=== PATIENT | female | born 1970 | race Hispanic/Latino ===

== ENCOUNTER 2018-03-06 12:30 | Emergency (ER) | payer OTHER ==
[2018-03-06 12:37] VITALS: BMI 25.1
[2018-03-06 12:40] VITALS: RESP 18; O2SAT 98
[2018-03-06] MEDS ORDERED: Sodium Chloride 0.9% 1,000 ML IV STA (13:40)
[2018-03-06] MEDS ORDERED: Mineral Oil Enema 135 ml RC ONE (13:41)
[2018-03-06] MEDS ORDERED: Magnesium Citrate Oral SOL (300 ml) PO ONE (13:41)
--- NOTE | 2018-03-06 13:45 | ED PDOC ---
Arrival/HPI - General Chief Complaint: GI Problem Time Seen by Provider: 03/06/18 13:13 Historian: Patient - History of Present Illness Narrative History of Present Illness (Text): 03/06/18 13:42 A 47 year old female, whose past medical history includes acute gastritis with stomach ulcers and section, presents to the emergency department complaining of having no bowel movement with occasional flatus for the past 11 days. Patient reports having taken Laxatives, as well as suppositories, and had some loose bowel movement, however still has had no improvement. Patient mentions also having 2 episodes of nausea/vomiting a few days ago, and 3 days of no appetite and decreased hydration. As a result, patient felt weak and fatigue; along with waxing/waning abdominal pain lasting for several minutes. Patient became concerned and decided to come to the ER for evaluation. Patient denies any fever, chills, chest pain, shortness of breath, palpitation, urinary output changes, or any other complaints at this time. pt denied fall/trauma; Also, patient denies any recent travel or sick contacts. Patient also mentions she has a GI doctor, however has not seen the physician for many years. pt's without other complaints pt is here for further eval PMD: Dr. Peterson The Time/Duration: > week (11 days) Symptom Onset: Gradual Symptom Course: Unchanged Severity Level: Severe Activities at Onset: Rest Context: Home Past Medical History - Provider Review Nursing Documentation Reviewed: Yes - Travel History Have you recently traveled outside [place] w/in the past 3 mons?: No - Past History Past History: No Previous - Infectious Disease Hx of Infectious Diseases: None - Reproductive Menopause: No Currently : Unknown - Cardiac Hx Cardiac Disorders: No Hx Hypertension: No - Pulmonary Hx Tuberculosis: No - Neurological HX Cerebrovascular Accident: No Hx Seizures: No - HEENT Hx HEENT Disorder: No Hx Blind: No Hx Cataracts: No Hx Deafness: No Hx Difficulty Chewing: No Hx Epistaxis: No Hx Glaucoma: No Hx Macular Degeneration: No - Renal Hx Renal Disorder: No Hx Dialysis: No Hx Kidney Stones: No Hx Neurogenic Bladder: No Hx Pyelonephritis: No Hx Renal Cancer: No Hx Renal Failure: No - Endocrine/Metabolic Hx Endocrine Disorders: No Hx Adrenal Cancer: No Hx Diabetes Insipidus: No Hx Diabetes Mellitus Type 1: No Hx Diabetes Mellitus Type 2: No Hx Hyperthyroidism: No Hx Hypothyroidism: No Hx Systemic Lupus Erythematosus: No - Hematological/Oncological Hx Cancer: No - Integumentary Hx Dermatological Disorder: No Hx Basal Cell Carcinoma: No Hx Eczema: No Hx Melanoma: No Hx Psoriasis: No Hx Squamous Cell Carcinoma: No - Musculoskeletal/Rheumatological Hx Musculoskeletal Disorders: No Hx Arthritis: No Hx Back Pain: No Hx Degenerative Joint Disease: No Hx Falls: No Hx Fractures: No Hx Gout: No Hx Herniated Disk: No Hx Myasthenia Gravis: No Hx Osteoarthritis: No Hx Osteomyelitis: No Hx Osteoporosis: No Hx Rhabdomyolysis: No Hx Spinal Stenosis: Yes Hx Unsteady Gait: No Other/Comment: Cervical Spinal fusion 2005 - Gastrointestinal Hx Gastrointestinal Disorders: No Hx Colostomy: No Hx Crohn's Disease: No Hx Diverticulitis: No Hx Gall Bladder Disease: No Hx Gastroesophageal Reflux: No Hx Ileostomy: No Hx Liver Failure: No Hx Pancreatitis: No HX Swallowing Problems: No Other/Comment: gastritis - Genitourinary/Gynecological Hx Sexually Transmitted Diseases: No - Psychiatric Hx Psychophysiologic Disorder: No Hx Anxiety: Yes Hx Bipolar Disorder: No Hx Depression: Yes Hx Emotional Abuse: No Hx Hallucinations: No Hx Panic Disorder: No Hx Post Traumatic Stress Disorder: No Hx Psychosis: No Hx Physical Abuse: No Hx Schizophrenia: No Hx Sexual Abuse: No Hx Substance Use: No Other/Comment: ADHD - Surgical History Hx Amputation: No Hx Appendectomy: No Hx Cardiac Catheterization: No Hx Cholecystectomy: No Hx Coronary Stent: No Hx Gastric Bypass Surgery: No Hx Hysterectomy: No Hx Joint Replacement: No Hx Kidney Transplant: No Hx Liver Transplant: No Hx Mastectomy: No Hx Musculoskeletal Surgery: No Hx Open Heart Surgery: No Hx Orthopedic Surgery: No Hx Splenectomy: No Hx Valve Replacement: No Other/Comment: Cervical spinal fusion. - Anesthesia Hx Anesthesia: Yes Hx Anesthesia Reactions: No Hx Malignant Hyperthermia: No - Suicidal Assessment Feels Threatened In Home Enviroment: No Family/Social History - Physician Review Nursing Documentation Reviewed: Yes Family/Social History: No Known Family HX Smoking Status: Heavy Smoker > 10 Cigarettes Daily Hx Alcohol Use: Yes Frequency of alcohol use: Socially Hx Substance Use: No Hx Substance Use Treatment: No Allergies/Home Meds Allergies/Adverse Reactions: Allergies No Known Allergies Allergy (Verified 06/10/14 14:36) Home Medications: Home Meds Medication Instructions Recorded Confirmed ALPRAZolam [Xanax] 1 tab PO BID PRN 03/06/18 03/06/18 Vortioxetine Hydrobromide 1 tab PO DAILY 03/06/18 03/06/18 [Trintellix] Review of Systems - Physician Review All systems were reviewed & negative as marked: Yes - Review of Systems Constitutional: Fatigue, Other (weakness). absent: Fevers, Night Sweats Eyes: Normal ENT: Normal Respiratory: absent: SOB Cardiovascular: absent: Chest Pain, Palpitations Gastrointestinal: Abdominal Pain (waxing/waning pain with severity of 10/10 lasting several minutes), Nausea, Vomiting (occured few days ago), Other ( occasional flatus). absent: Appetite Changes (no appetite and decreased hydration) Genitourinary Female: absent: Urine Output Changes, Other (patient experiencing no bowel movment) Musculoskeletal: Normal Skin: Normal Neurological: Normal Endocrine: Normal Hemo/Lymphatic: Normal Psychiatric: Normal Physical Exam - Physical Exam Narrative Physical Exam (Text): 03/06/18 1345 General: alert/awake, GCS = 15, oriented x 3, resting in bed, uncomfortable, cooperative, interactive; mild distress due to pain Head: NC/AT EYE: PERRLA, EOMI, sclera anicteric, no nystagmus, no photophobia; visual field intact b/l Facial: WNL Oral: uvula/tongue are midline, no exudate/lesions, no drooling/stridor, no dysphonia; intact dentitions; mild dry oral mucosa NECK: intact ROM, no midline tenderness, no nuchal rigidity, no meningeal signs ; no step off Chest: CTA b/l, no w/r/r; no tachypenia, no accessory muscle use noted Chest Wall: no focal tenderness, no gross deformities, no crepitus, no lesions/ rashes noted Cardiac: +S1, +S2, no m/r/r, no tachycardia Abdominal: +BS, soft/nd, + diffuse mid-lower abd tenderness, well nourished patient; no masses/rebound/guarding/rigidity; no martinez's sign, no mcburney's point tenderness Extremities: intact ROM, strength 5/5 grossly intact in all limbs, neurovasc intact b/l; + ambulatory; reflex +2/2 BACK: no step off, no midline tenderness, NO crepitus, no gross deformities noted; Intact ROM; no CVAT b/l SKIN: cap refill < 1 sec, no ulcerations, no petechiae, no rashes; no gross pallor NEURO: CNII-XII WNL, no facial asymmetries, no slurr speech, oriented x 3 NIH stroke scale ~ 0 Psych: normal insight, normal affect; follows command with ease Vital Signs Reviewed: Yes Vital Signs Temp Pulse Resp BP Pulse Ox 03/06/18 16:13 92 H 18 130/80 98 03/06/18 14:25 102 H 18 114/70 98 03/06/18 12:39 98.7 F 117 H 18 116/77 98 Temperature: Afebrile Blood Pressure: Normal Pulse: Tachycardic Respiratory Rate: Normal Appearance: Positive for: Well-Appearing, Uncomfortable. No: Non-Toxic, Ill- Appearing, Unkept Pain Distress: Mild Mental Status: Positive for: Alert and Oriented X 3 - Systems Exam Head: Present: Atraumatic, Normocephalic Medical Decision Making ED Course and Treatment: 03/06/18 13:43 Impression: abd pain, no bm x 11 days i have consider all the differential diagnosis regarding pt's chief medical complaints/clinical findings, including but are not limited to: abd pain, r/o obstruction, likely constipation A/P: abd pain - labs - iv - ct - ua - supportive care - observe/reevaluation 1500 pt is currently uncomfortable pt is awaiting for her medical results 03/06/18 16:29 Patient states feeling more abdominal pain and requests some assistance. Patient has been made aware of her CT results and has been given two options: 1 ) Provide antibiotics and PO challenge, and if treatment is successful, patient may be discharged home with outpt f/u and on po abx; or 2) if pain persists and is unable to tolerate PO, pt will be admitted to hospital for further eval/mgt/ abx. Patient is leaning towards option 1. Will prescribe pain medication to patient for pain relief currently 03/06/18 17:09 Patient given Morphine, pt felt much improved. Patient is currently tolerating PO. Will continue to monitor patient. 03/06/18 1800 vital signs are stable pt's abd pain/cramps is now 2-3/10 pt is comfortable pt is comfortable to go home pt tolerated po well pt is made aware of her medical results pt is encouraged fluids pt is encouraged bland/BRAT diet pt is encouraged pro-biotics pt will f/u as directed pt will be discharged home Re-evaluation Time: 18:08 Reassessment Condition: Improving,but remains with symptoms - Lab Interpretations Lab Results: 03/06/18 13:55 03/06/18 13:55 Lab Results 03/06/18 13:55: Sodium 140, Chloride 102, Potassium 3.5 L, Carbon Dioxide 27, Anion Gap 14, BUN 6 L, Creatinine 0.6 L, Est GFR ( Amer) > 60, Est GFR ( Non-Af Amer) > 60, Random Glucose 99, Calcium 8.5, Magnesium 2.3 H, Total Bilirubin 0.5, AST 17, ALT 26, Alkaline Phosphatase 69, Total Protein 6.6, Albumin 3.8, Globulin 2.9, Albumin/Globulin Ratio 1.3, Lipase 22 L 03/06/18 13:55: pO2 30, VBG pH 7.37, VBG pCO2 49.0, VBG HCO3 28.3 H, VBG Total CO2 29.8 H, VBG O2 Sat (Calc) 70.3 H, VBG Base Excess 2.2 H, VBG Potassium 3.4 L , Sodium 138.0, Chloride 105.0, Glucose 102, Lactate 0.7, FiO2 21.0, Venous Blood Potassium 3.4 L 03/06/18 13:55: PT 13.3 H, INR 1.16 H, APTT 29.0 03/06/18 13:55: WBC 13.5 H, RBC 4.00, Hgb 12.9, Hct 38.1, MCV 95.3, MCH 32.3, MCHC 33.9, RDW 13.0, Plt Count 256, MPV 9.5, Gran % 76.4 H, Lymph % (Auto) 15.8 L, [place] % (Auto) 6.6 H, Eos % (Auto) 1.1 L, Baso % (Auto) 0.1, Gran # 10.28 H, Lymph # (Auto) 2.1, [place] # (Auto) 0.9 H, Eos # (Auto) 0.2, Baso # (Auto) 0.02 03/06/18 13:00: Urine Color Yellow, Urine Appearance Clear, Urine pH 6.0, Ur Specific [place] <= 1.005, Urine Protein Negative, Urine Glucose (UA) Negative, Urine Ketones Negative, Urine Blood Negative, Urine Nitrate Negative, Urine Bilirubin Negative, Urine Urobilinogen 0.2, Ur Leukocyte Esterase Negative I have reviewed the lab results: Yes Interpretation: Abnormal lab values (elevated WBCs) - RAD Interpretation Narrative RAD Interpretations (Text): 03/06/2018 15:17 PROCEDURE: CT Abdomen and Pelvis with contrast HISTORY: diffuse mid abd pain, r/o obstruction, no bm x 11D COMPARISON: None. TECHNIQUE: Contrast dose: 150 cc of Omni 350 Radiation dose: Total exam DLP = 468 mGy-cm. This CT exam was performed using one or more of the following dose reduction techniques: Automated exposure control, adjustment of the mA and/or kV according to patient size, and/or use of iterative reconstruction technique. FINDINGS: LOWER THORAX: Unremarkable. LIVER: Unremarkable. No gross lesion or ductal dilatation. GALLBLADDER AND BILE DUCTS: Unremarkable. PANCREAS: Unremarkable. No gross lesion or ductal dilatation. SPLEEN: Unremarkable. ADRENALS: Unremarkable. No mass. KIDNEYS AND URETERS: Unremarkable. No hydronephrosis. No solid mass. VASCULATURE: Unremarkable. No aortic aneurysm. BOWEL: There is mural thickening in the sigmoid colon consistent with colitis. APPENDIX: Normal appendix. PERITONEUM: Unremarkable. No free fluid. No free air. LYMPH NODES: Unremarkable. No enlarged lymph nodes. BLADDER: Unremarkable. REPRODUCTIVE: Unremarkable. BONES: No acute fracture. OTHER FINDINGS: None. IMPRESSION: Mural thickening in the sigmoid colon consistent with colitis. Radiology Orders: 03/06/18 13:40 ABD & PELVIS IV CONTRAST ONLY [CT] Stat Bi Report Developer: Radiologist - Medication Orders Current Medication Orders: Discontinued Medications Famotidine (Pepcid) 20 mg IVP STAT STA Stop: 03/06/18 13:41 Last Admin: 03/06/18 13:57 Dose: 20 mg IVP Administration Document 03/06/18 13:57 OCS (Rec: 03/06/18 13:57 OCS [id number]) Charges for Administration # of IVP Administrations 1 Sodium Chloride (Sodium Chloride 0.9%) 1,000 mls @ 1,000 mls/hr IV .Q1H STA Stop: 03/06/18 14:39 Last Admin: 03/06/18 13:57 Dose: 1,000 mls/hr eMAR Start Stop Document 03/06/18 13:57 OCS (Rec: 03/06/18 13:57 OCS [id number]) Intravenous Solution Start Date 03/06/18 Start Time 13:57 End Date 03/06/18 End time 14:57 Total Infusion Time 60 Ciprofloxacin (Cipro 400mg/200ml Dsw) 400 mg in 200 mls @ 133.3 mls/hr IVPB STAT STA PRN Reason: Protocol Stop: 03/06/18 17:44 Metronidazole (Flagyl) 500 mg in 100 mls @ 100 mls/hr IVPB STAT STA PRN Reason: Protocol Stop: 03/06/18 17:14 Last Admin: 03/06/18 17:04 Dose: 100 mls/hr eMAR Start Stop Document 03/06/18 17:04 OCS (Rec: 03/06/18 17:04 OCS [id number]) Intravenous Solution Start Date 03/06/18 Start Time 17:04 End Date 03/06/18 End time 18:04 Total Infusion Time 60 Magnesium Citrate (Citrate Of Mag) 300 ml PO ONCE ONE Stop: 03/06/18 13:42 Last Admin: 03/06/18 13:56 Dose: 300 ml Mineral Oil (Fleet Mineral Oil Enema) 135 ml RC ONCE ONE Stop: 03/06/18 13:42 Last Admin: 03/06/18 15:29 Dose: 135 ml Morphine Sulfate (Morphine) 4 mg IVP STAT STA Stop: 03/06/18 16:29 Last Admin: 03/06/18 17:03 Dose: 4 mg MAR Pain Assessment Document 03/06/18 17:03 OCS (Rec: 03/06/18 17:04 OCS [id number]) Pain Reassessment Is this a pain reassessment? Yes Sleep Is patient sleeping during reassessment? No Presence of Pain Presence of Pain Yes Pain Scale Used Pain Scale Used Numeric Location Pain Location Body Site Abdomen Description Description Constant Intensity of Pain at present 9 Aggravating Factors ADL's IVP Administration Document 03/06/18 17:03 OCS (Rec: 03/06/18 17:04 OCS [id number]) Charges for Administration # of IVP Administrations 1 Ondansetron HCl (Zofran Inj) 4 mg IVP STAT STA Stop: 03/06/18 13:41 Last Admin: 03/06/18 13:56 Dose: 4 mg IVP Administration Document 03/06/18 13:56 OCS (Rec: 03/06/18 13:57 OCS [id number]) Charges for Administration # of IVP Administrations 1 - Scribe Statement The provider has reviewed the documentation as recorded by the Amadaibtavo Moreno Provider Scribe Attestation: All medical record entries made by the Scribe were at my direction and personally dictated by me. I have reviewed the chart and agree that the record accurately reflects my personal performance of the history, physical exam, medical decision making, and the department course for this patient. I have also personally directed, reviewed, and agree with the discharge instructions and disposition. Disposition/Present on Arrival - Present on Arrival Any Indicators Present on Arrival: No History of DVT/PE: No History of Uncontrolled Diabetes: No Urinary Catheter: No History of Decub. Ulcer: No History Surgical Site Infection Following: None - Disposition Have Diagnosis and Disposition been Completed?: Yes Diagnosis: Colitis, Abdominal pain Disposition: HOME/ ROUTINE Disposition Time: 18:10 Patient Plan: Discharge Patient Problems: Current Active Problems Problem Status Onset Colitis Acute Abdominal pain Acute Condition: STABLE Discharge Instructions (ExitCare): Acute Abdomen (Belly Pain), Inflammatory Bowel Disease (DC) Print Language: TURKMEN Additional Instructions: Make sure to see your doctor in 1-2 days DRINK PLENTY OF FLUIDS take your medications as prescribed BLAND DIET is encouraged add PROBIOTICS in your diet RETURN TO ED IF worse pain, cant breath, persistent vomiting, high fever >101- 102 for hours, altered behavior, slurr speech, facial changes, focal weakness ( arm/leg or both), unable to urinate, heavy/persistent bleeding, passing out, chest pain, or other medical emergencies Prescriptions: Ciprofloxacin HCl [Cipro] 500 mg PO BID #19 tablet Metronidazole [Flagyl] 500 mg PO TID #29 tablet Ondansetron ODT [Zofran ODT] 4 mg PO TID PRN #10 odt PRN Reason: Nausea/Vomiting oxyCODONE/Acetaminophen [Percocet 5/325 mg Tab] 1 tab PO QID PRN #12 tab PRN Reason: Pain, Moderate (4-7) Referrals: Nicholas Turner MD [Primary Care Provider] - Follow up with primary Luigi Encarnacion MD [Staff Provider] - Follow up with primary Forms: [employer] ([place]), WORK NOTE
[2018-03-06 13:58] LABS: URINE APPEARANCE CLEAR (CLEAR); URINE BILIRUBIN NEGATIVE (NEGATIVE); URINE BLOOD NEGATIVE (NEGATIVE); URINE COLOR YELLOW (YELLOW); URINE GLUCOSE (UA) NEGATIVE (NEGATIVE); URINE LEUKOCYTE ESTERASE NEGATIVE Leu/uL (NEGATIVE); URINE PROTEIN NEGATIVE mg/dL (<30 mg/dL); URINE UROBILINOGEN 0.2 E.U./dL (<1 E.U./dL)
[2018-03-06 14:19] LABS: VENOUS BLOOD GAS BASE EXCESS 2.2 mmol/L (0.0-2.0); VENOUS BLOOD GAS PO2 30 mm/Hg (30-55); VENOUS BLOOD PH 7.37 (7.32-7.43)
[2018-03-06 14:24] LABS: BASO # 0.02 K/mm3 (0.0-2.0); BASO % 0.1 % (0.0-3.0); EOS # 0.2 (0.0-0.7); EOS % 1.1 % (1.5-5.0); GRAN # 10.28 (1.4-6.5); GRAN % 76.4 % (50.0-68.0); HEMOGLOBIN 12.9 g/dL (12.0-16.0); LYMPH # 2.1 (1.2-3.4); LYMPH % 15.8 % (22.0-35.0); MEAN CELL VOLUME 95.3 fl (80.0-105.0); MEAN CORPUSCULAR HEMOGLOBIN 32.3 pg (25.0-35.0); MEAN CORPUSCULAR HGB CONC 33.9 g/dl (31.0-37.0); MEAN PLATELET VOLUME 9.5 fl (7.0-11.0); MONO # 0.9 (0.1-0.6); MONO % 6.6 % (1.0-6.0); WHITE BLOOD COUNT 13.5 10^3/ul (4.5-11.0)
[2018-03-06 14:31] LABS: ALB/GLOB RATIO 1.3 (1.1-1.8); ALBUMIN 3.8 g/dL (3.0-4.8); ALT/SGPT 26 U/L (7-56); AST/SGOT 17 U/L (14-36); BLOOD UREA NITROGEN 6 mg/dL (7-21); CALCIUM 8.5 mg/dL (8.4-10.5); GFR AFRICAN-AMERICAN > 60; GFR NON-AFRICAN AMERICAN > 60; LIPASE 22 U/L (23-300)
[2018-03-06 15:03] LABS: INR 1.16 (0.93-1.08); PROTHROMBIN TIME 13.3 SECONDS (9.4-12.5)
--- NOTE | 2018-03-06 15:20 | CT ---
PROCEDURE: CT Abdomen and Pelvis with contrast HISTORY: diffuse mid abd pain, r/o obstruction, no bm x 11D COMPARISON: None. TECHNIQUE: Contrast dose: 150 cc of Omni 350 Radiation dose: Total exam DLP = 468 mGy-cm. This CT exam was performed using one or more of the following dose reduction techniques: Automated exposure control, adjustment of the mA and/or kV according to patient size, and/or use of iterative reconstruction technique. FINDINGS: LOWER THORAX: Unremarkable. LIVER: Unremarkable. No gross lesion or ductal dilatation. GALLBLADDER AND BILE DUCTS: Unremarkable. PANCREAS: Unremarkable. No gross lesion or ductal dilatation. SPLEEN: Unremarkable. ADRENALS: Unremarkable. No mass. KIDNEYS AND URETERS: Unremarkable. No hydronephrosis. No solid mass. VASCULATURE: Unremarkable. No aortic aneurysm. BOWEL: There is mural thickening in the sigmoid colon consistent with colitis. APPENDIX: Normal appendix. PERITONEUM: Unremarkable. No free fluid. No free air. LYMPH NODES: Unremarkable. No enlarged lymph nodes. BLADDER: Unremarkable. REPRODUCTIVE: Unremarkable. BONES: No acute fracture. OTHER FINDINGS: None. IMPRESSION: Mural thickening in the sigmoid colon consistent with colitis.
[2018-03-06] MEDS ORDERED: Ciprofloxacin 400mg/200ml D5W 400 MG/200 ML BAG IVPB STA (16:14)
[2018-03-06] MEDS ORDERED: metroNIDAZOLE IV 500 mg/100 ml 500 MG/100 ML BAG IVPB STA (16:15)
[2018-03-06] MEDS ORDERED: Morphine 4 mg/ml ISec IVP STA (16:28)
[2018-03-06 18:55] VITALS: BP 128/78; PULSE 86; TEMP 98.2
== END 2018-03-06 18:51 | disposition home or self-care (01) ==
LOC: ED 12:30
DX: K52.9 Noninfective gastroenteritis and colitis, unspecified (principal); R10.9 Unspecified abdominal pain
CPT/HCPCS: 74177; 80053; 81003; 82803; 83690; 83735; 85025; 85610; 85730; 96361; 96365; 96375; 99284; J2270; J2405; J7030; Q9967